=== PATIENT | female | born 1945 | race Caucasian/White ===

== ENCOUNTER 2020-07-15 17:21 | Outpatient (CLI) | payer MEDICARE, SELFPAY ==
--- NOTE | ~2020-07-15 | CT_ITS ---
EXAMINATION: CT chest wo con DATE: 07/15/2020 17:48 INDICATION: Shortness of breath, COPD TECHNIQUE: Computed tomography (CT) of the chest was performed without intravenous contrast. The dose -length product (DLP) was 744.20 mGy-cm. Automated exposure control and iterative reconstruction tech [employer] were employed. COMPARISON: 07/24/2019 FINDINGS: There is severe emphysema. A tracheostomy is noted. Again noted is volume loss in the left lower lobe with bandlike airspace opacity abutting the major fissure and extending to the left hilum. There is rounded atelectasis of the right lower lobe. There is minimal airspace opacity of the lingu la. There is no pleural effusion or pneumothorax. The heart size is normal. Calcified coronary artery atherosclerosis is noted. There are no pathologically enlarged thoracic lymph nodes. Old left-sided rib fractures are again noted. IMPRESSION: 1. Minimal opacities of the lingula, consistent with infection/inflammation. 2. Unchanged bandlike opacity of the left lower lobe extending to the left hilum, consistent with ash[place] ated malignancy. Reviewed, dictated and finalized at location A. IMPRESSION: 1. Minimal opacities of the lingula, consistent with infection/inflammation. 2. Unchanged bandlike opacity of the left lower lobe extending to the left hilu m, consistent with treated malignancy.
== END 2020-07-15 17:22 | disposition home or self-care (01) ==
PROVIDERS: PCP Family Medicine Adolescent Medicine; Visit Provider Internal Medicine Critical Care Medicine
DX: J44.9 Chronic obstructive pulmonary disease, unspecified (principal); R06.02 Shortness of breath
CPT/HCPCS: 71250

== ENCOUNTER 2021-06-24 14:47 | Outpatient (CLI) | payer MEDICARE, SELFPAY ==
--- NOTE | ~2021-06-24 | CT_ITS ---
EXAMINATION:CT diagnostic chest wo con DATE: 06/24/2021 15:51 INDICATION: Personal history of malignant neoplasm of other organs and systems. TECHNIQUE: Computed tomography (CT) of the chest was performed without intravenous contrast. Automate d exposure control and iterative reconstruction technique were employed. The dose-length product (DLP ) was 506.37 mGy-cm. COMPARISON: Chest CT 07/15/2020, PET/CT 12/19/13 FINDINGS: There is severe emphysema. There is mild scarring at the lung apices. There is mild periphe ral scarring in right lower lobe. There are airspace opacities, centrilobular nodules, and tree-in-bu d opacities in lingula, consistent with pneumonia. There is an ill-defined left lower lobe mass with near complete collapse of left lower lobe. Calcified left lung nodules and calcified left hilar lymph nodes are consistent with old granulomatous disease. A tracheostomy tube is noted. There is fluid in the esophagus. There is no pleural effusion. The heart size is normal. There are coronary artery chari cifications. No pericardial effusion. There are old left rib fractures. There is moderate thoracic sp ondylosis. IMPRESSION: 1. Ill-defined left lower lobe mass with worsened near complete collapse of left lower lobe, consiste nt with malignancy and changes of radiation therapy. 2. Pneumonia in the lingula. 3. Severe emphysema. Reviewed, dictated and finalized at location A. IMPRESSION: 1. Ill-defined left lower lobe mass with worsened near complete collapse of lef t lower lobe, consistent with malignancy and changes of radiation therapy. 2. Pneumonia in the lingula. 3. Severe emphysema.
== END 2021-06-24 14:48 | disposition home or self-care (01) ==
PROVIDERS: PCP Family Medicine Adolescent Medicine; Visit Provider Internal Medicine Critical Care Medicine
DX: R91.1 Solitary pulmonary nodule (principal); Z85.828 Personal history of other malignant neoplasm of skin; J18.9 Pneumonia, unspecified organism; J43.9 Emphysema, unspecified
CPT/HCPCS: 71250

== ENCOUNTER 2021-08-04 15:34 | Outpatient (CLI) | payer MEDICARE, SELFPAY ==
--- NOTE | ~2021-08-04 | XR_ITS ---
EXAMINATION: XR chest 2V EXAM DATE: 08/04/2021 16:10 INDICATION: J18.9 - Pneumonia, unspecified organism, SOB TECHNIQUE: Frontal and lateral projections of the chest obtained and reviewed. Comparison is made to prior examination from 2015. Correlation made to chest CT 06/24/2021. FINDINGS: There is focal left infrahilar opacity consistent with malignancy which reportedly has bee n treated with radiation. On the CT scan from last month, the left lower lobe was completely collapse d, likely postobstructive atelectasis. This has likely partially reexpanded given the well-defined th e inferior margin of the mass is on this chest x-ray. Small amount of lingular pneumonia suspected on that study, difficult to determine whether or not sena t has resolved. Right lung is clear. There is no pneumothorax suspected. Small left pleural effusion. There is aortic arteriosclerosis. Cardiomediastinal silhouette is normal. There are mild bony degene rative changes. IMPRESSION: 1. Left infrahilar mass. 2. Probable partial reexpansion of the left lower lobe. 3. Can't confidently determine whether small amount of lingular pneumonia on recent CT has resolved. Reviewed, dictated and finalized at location A. IMPRESSION: 1. Left infrahilar mass. 2. Probable partial reexpansion of the left lower lobe. 3. Can't confidently determine whether small amount of lingular pneumonia on r ecent CT has resolved.
== END 2021-08-04 15:35 | disposition home or self-care (01) ==
LOC: ANHIMG 15:45
PROVIDERS: PCP Family Medicine Adolescent Medicine; Visit Provider Internal Medicine Critical Care Medicine
DX: J18.9 Pneumonia, unspecified organism (principal)
CPT/HCPCS: 71046

== ENCOUNTER 2021-09-07 15:17 | Outpatient (CLI) | payer MEDICARE, SELFPAY ==
--- NOTE | ~2021-09-07 | CT_ITS ---
EXAMINATION: CT diagnostic chest wo con EXAM DATE: 09/07/2021 15:50 INDICATION: R06.02 - Shortness of breath. Lung cancer. Laryngeal cancer. TECHNIQUE: Spiral CT of the chest without contrast. Axial, coronal and sagittal images of the chest were reviewed. Coronal maximum intensity pixel images of chest reviewed. The dose-length product ( DLP) for this examination was 453.94 mGy-cm. The exposure was tailored according to patient size (au to mA exposure control), and iterative reconstruction (ASIR) was used as additional dose reduction te chnique. Comparison is made to prior examination from 06/24/2021. FINDINGS: There is moderate emphysema and hyperinflation. There is tracheostomy tube. There is debri s throughout the left lower lobe bronchi. There is completely opacified left lower lobe, could be sca rring, radiation related changes from treated cancer. Some peripheral lingular opacity unchanged, pro bably also radiation related fibrosis. There has been development of some small cystic spaces within this compared to prior study. There are no pleural or pericardial effusions. Tracheobronchial tree is patent. There is a precarinal lymph node which is mildly enlarged at 10 x 14 mm (was 8 x 13 mm on prior study ). There is no pneumothorax. Heart normal in size. There is moderate coronary arterial calcificat ion, arterial sclerosis. There is hepatic steatosis. There is mild to moderate thoracic spondylosis without osteoblastic or osteolytic lesions identified. Old left rib fractures posteriorly. IMPRESSION: 1. Collapsed left lower lobe collapse, likely treated lung cancer, scarring. 2. Mildly enlarged precarinal lymph node, could be reactive but metastatic disease not excludable. 3. Moderate emphysema and hyperinflation. Reviewed, dictated and finalized at location D. OFILM MOUNTER IMPRESSION: 1. Collapsed left lower lobe collapse, likely treated lung cancer, scarring. 2. Mildly enlarged precarinal lymph node, could be reactive but metastatic dis ease not excludable. 3. Moderate emphysema and hyperinflation.
== END 2021-09-07 15:18 | disposition home or self-care (01) ==
PROVIDERS: PCP Family Medicine Adolescent Medicine; Visit Provider Nurse Practitioner Family
DX: R06.02 Shortness of breath (principal); J43.9 Emphysema, unspecified; J98.19 Other pulmonary collapse
CPT/HCPCS: 71250

== ENCOUNTER 2021-11-03 13:53 | Outpatient (CLI) | payer MEDICARE, SELFPAY ==
--- NOTE | ~2021-11-03 | PE_ITS ---
EXAMINATION: PET skull to mid thigh DATE: 11/03/2021 15:35 INDICATION: Lung cancer. Laryngeal cancer. Mediastinal lymphadenopathy. TECHNIQUE: Blood glucose level was 118 mg/dL. 9.515 mCi of 18-fluorodeoxyglucose (18-FDG) was adminis tered i.v. Low dose computed tomography (CT) images were acquired from the base of the brain to the p roximal thighs for attenuation correction and anatomic localization. Automated exposure control was e mployed. Dose-length product (DLP) was 787 mGy-cm. Positron emission tomography (PET) images were acq uired in the same distribution. COMPARISON: Chest CT 09/07/2021, 06/24/21, 01/10/2017, PET CT 12/19/2013 FINDINGS: Head/neck: There is increased activity in the oral cavity, sublingual glands, and paraspinal muscles without abnormal CT correlate, likely physiologic. There are changes of laryngectomy. A tracheostomy tube is noted. There are no pathologically enlarged lymph nodes. Chest: There is severe emphysema. There is symmetric scarring at the lung apices without increased ac tivity. There are a few scattered nodules in the lungs measuring up to 5 mm without increased activit y. There are dependent airspace opacities in right lung lower lobe without increased activity. There is near complete opacification of left lower lobe with volume loss and occluded bronchi with increase d activity with maximum SUV of 22.5. There are airspace and groundglass opacities in lingula with inc reased activity. There is mediastinal and left hilar lymphadenopathy with increased activity. For exa mple, a node in the aorticopulmonary window measures 2.2 x 1.4 cm with maximum SUV of 7.2. No pleural effusion. The heart size is normal. There are coronary artery calcifications. No pericardial effusio n. Abdomen/pelvis/proximal thighs: The liver, gallbladder, spleen, and right adrenal gland are normal. T here is a 15 mm mass in left adrenal gland measuring soft tissue attenuation without increased activi ty, likely an adenoma. The kidneys are normal. There are calcified fibroids in the uterus. There is d iverticulosis of the colon without evidence of diverticulitis. There are no dilated loops of bowel. T here are no pathologically enlarged lymph nodes. There is no free intraperitoneal fluid. There are mu ltiple scattered foci of increased activity in bone, some of which are associated with lytic lesions by CT. For example, a 9 mm lytic lesion in right iliac wing demonstrates maximum SUV of 6.8. IMPRESSION: 1. Foci of increased activity in bone, some of which demonstrate lytic lesions by CT, consistent with metastatic disease. 2. Pulmonary nodules measuring up to 5 mm without increased activity, which are indeterminate for met astatic disease. 3. Airspace opacities in left lung lower lobe and lingula with increased activity with worsening from 06/24/21, consistent with some combination of left lower lobe primary malignancy, treatment changes, a nd pneumonia. 4. Mediastinal and left hilar lymphadenopathy with increased activity, which may be reactive and/or m etastatic disease. 5. Severe emphysema. Reviewed, dictated and finalized at location B. ER OPERATOR IMPRESSION: 1. Foci of increased activity in bone, some of which demonstrate lytic lesions by CT, consistent with metastatic disease. 2. Pulmonary nodules measuring up to 5 mm without increased activity, which are indeterminate for metastatic disease. 3. Airspace opacities in left lung lower lobe and lingula with increased activi ty with worsening from 06/24/21, consistent with some combination of left lower l obe primary malignancy, treatment changes, and pneumonia. 4. Mediastinal and left hilar lymphadenopathy with increased activity, which ma y be reactive and/or metastatic disease. 5. Severe emphysema.
[2021-11-03 14:17] LABS: Glucose Point of Care 118 mg/dl (65-105)
== END 2021-11-03 13:54 | disposition home or self-care (01) ==
PROVIDERS: PCP Family Medicine Adolescent Medicine; Visit Provider Nurse Practitioner Family
DX: Z85.89 Personal history of malignant neoplasm of other organs and systems (principal); R91.8 Other nonspecific abnormal finding of lung field; J43.9 Emphysema, unspecified
CPT/HCPCS: 78815; A9552